=== PATIENT | male | born 1995 | race Caucasian/White ===

== ENCOUNTER → 2019-02-21 | Outpatient (CLI) | payer OTHER ==
--- NOTE | 2019-02-21 10:20 | REP ---
TRIPLE PHASE BONE SCAN OF THE ANKLES: Following the intravenous administration of 21.9 millicuries technetium 99m MDP, patient's ankles are imaged in the flow phase, immediate blood pool and 2.5-hour delayed phases of imaging. There is increased blood flow and blood pooling in the distal left fibular region. Delayed images show focal intense increased uptake in the distal left fibula, consistent with a relatively acute stress fracture. Delayed images also show increased linear uptake along the tibial shafts compatible with stress periostitis. There is also a focal area of anterior cortical uptake in the distal right tibia suggesting a focal anterior cortical stress fracture. Electronically Signed by Blake Olivas MD 02/21/2019 06:32 P
== END ==
LOC: M RAD 07:10
PROVIDERS: ATTEND Physician Assistant Surgical
DX: M84.364A Stress fracture, left fibula, initial encounter for fracture (principal)

== ENCOUNTER 2021-04-12 08:55 | Emergency (ER) | payer OTHER ==
[~2021-04-12] VITALS: Ht 195.6 cm; Wt 87.4 kg
--- OUTSIDE RECORDS SUMMARY | 2021-04-12 09:04 | CCD | Summary of Care ---
Author Author [facility] Organization [facility] Address Unknown Phone Unavailable Care Team Providers Care Fuse Maker Name Role Phone Pcp, No PCP Unavailable Reason for Visit * Reason Comments Finger Injury ring finger of left hand Encounter Details Care Team Description Date Type Department Basilia Bird, DO [address] [place] [address] Injury of nail bed of finger of left ashby d, subsequent encounter (Primary Dx); Open fracture of tuft of distal phalanx of finger 02/03/2021 Emergency PEDIATRIC EMERGENCY DEPARTMENT [address] [place] [address] Allergies Comments Active Allergy Reactions Severity Noted Date Sulfa Antibiotics 02/03/2021 documented as of this encounter (statuses as of 02/03/2021) Medications End Date Status Medication Sig Dispensed Refills Start Date 02/10/2021 Active Cephalexin 500 MG Oral Take 1 21 capsule 0 Capsule (KEFLEX) capsule by 1 mouth Three times daily for 7 days documented as of this encounter (statuses as of 02/03/2021) Active Problems Not on filedocumented as of this encounter (statuses as of 02/03/2021) Immunizations Name Administration Dates Next Due Tdap 02/03/2021 documented as of this encounter Social History Date Tobacco Use Types Packs/Day Years Used Never Smoker Sex Assigned at Date Recorded Not on file Travel End Travel History Travel Start 02/02/2021 [place] 01/15/2021 Date Recorded COVID-19 Exposure Response 02/03/2021 12:06 PM EDT In the last month, have you been in contact with No / Unsure someone who was confirmed or suspected to have Coronavirus / COVID-19? documented as of this encounter Last Filed Vital Signs Reading Time Taken Comments Vital Sign 126/73 02/03/2021 3:20 PM EDT Blood Pressure 60 02/03/2021 3:20 PM EDT Pulse 36.7 C (98 F) 02/03/2021 3:20 PM EDT Temperature 16 02/03/2021 3:20 PM EDT Respiratory Rate 100% 02/03/2021 3:20 PM EDT Oxygen Saturation - - Inhaled Oxygen Concentration 93 kg (205 lb) 02/03/2021 12:24 PM EDT Weight 195.6 cm (6' 5") 02/03/2021 12:24 PM EDT Height 24.31 02/03/2021 12:24 PM EDT Body Mass Index documented in this encounter Discharge Instructions * Instructions* Lauren Fernando MD - 02/03/2021 Your finger appears to be healing well, with no signs of infection. You do have and open fracture, so is important to take antibiotics daily for the next week to help prevent infection. It is also important to follow-up with the orthopedic doctors to ensure everything is healing well. Call Dr[facility] to schedule a follow-up appointment next week. If you develop increased pain, swelling, redness, pus draining from the area, fe vers or other worsening symptoms, return to the emergency department for immedia te reevaluation documented in this encounter ED Notes * Elen Tom RN - 02/03/2021 3:20 PM EDT Patient is re-assessed by MD and deemed ready for discharge. Patient is alert, a ctive, and in no acute distress. Discharge instructions, follow-up care, prescri ptions, and pharmacy is reviewed with patient. Patient verbalized understanding and denies questions at this time. Patient agrees with plan to discharge. Serena dickson is discharged to home in stable condition. * Elen Tom RN - 02/03/2021 12:35 PM EDT Dressing removed per MD. Saline used to help remove dressing. 2x2 on top of hand stuck to dried blood on top of finger. Finger placed in basin with saline to so ak awaiting MD evaluation. MD's aware. * Elen Tom RN - 02/03/2021 12:30 PM EDT Assumed care of patient at this time. Introduced self to patient. Assessment is as documented. Patient has dressing to left ring finger - no bleeding or drainag e noted to dressing. Will leave dressing on until MD's ready for evaluation. Saf ety maintained. Call lyons within reach. Will continue to monitor. * Catrachita Bloom RN - 02/03/2021 12:20 PM EDT Patient sustained an open fracture to ring finger approx 1 week ago. Patient has finger wrapped at this time. documented in this encounter Plan of Treatment Health Maintenance Due Date Last Done Comments MMR Vaccines (1 of - 09/02/1996 Standard series) Varicella Vaccines (1 of 09/02/1996 2 - 2-dose childhood series) HIV Screening 09/02/2008 DTaP,Tdap,and Td Vaccines 03/03/2021 02/03/2021 (2 - Td or Tdap) Influenza Vaccine 03/04/2021 Pneumococcal Vaccine: 65+ 09/02/2060 Years (1 of 1 - PPSV23) HIB Vaccines Aged Out No longer eligible based on patient's age to complete this topic Hepatitis A Vaccines Aged Out No longer eligibl e based on patient's age to complete this topic Hepatitis B Vaccines Aged Out No longer eligibl e based on patient's age to complete this topic IPV Vaccines Aged Out No longer eligible based on patient's age to complete this topic Pneumococcal Vaccine: Aged Out No longer eligib le based on patient's age to Pediatrics (0 to 5 Years) complete this topic and At-Risk Patients (6 to 64 Years) documented as of this encounter Procedures Comments Procedure Name Priority Date/Time Associated Diag nosis XR HAND 3 OR MORE VIEWS STAT 02/03/2021 70679 1:31 PM EDT documented in this encounter Results * XR Hand 3 or More Views Left (02/03/2021 1:31 PM EDT) Specimen Impressions Performed At IMPRESSION: Acute comminuted fracture of the distal t uft of the fourth finger [facility] generating mild bony fragmentation and soft tissue swelling. No radiopaque foreign body. Narrative Performed At [facility] Left hand radiograph INDICATION: Concern for fracture of the fourth digit COMPARISON: None available. FINDINGS: Frontal, bilateral oblique an d lateral views submitted for review. There is acute comminuted fracture of t he distal tuft of the fourth finger (fourth distal phalanx) generating a mi ld degree of bony fragmentation and soft tissue swelling. Remaining osseous stru ctures are intact. Joint spaces are preserved. No radiopaque foreign body i dentified. Procedure Note Interface, Received Via [employer] - 02/03/2021 2:01 PM EDT Left hand radiograph INDICATION: Concern for fracture of the fourth digit COMPARISON: None available. FINDINGS: Frontal, bilateral oblique and lateral views submitted for review. There is acute comminuted fracture of the distal tuft of the fourth finger (fourth distal phalanx) generating a mild degree of bony fragmentation and soft tissue swelling. Remaining osseous structures are intact. Joint spaces are preserved. No radiopaque foreign body identified. IMPRESSION: Acute comminuted fracture of the distal tuft of the fourth finger generating mild bony fragmentation and soft tissue swelling. No radiopaque foreign body. Performing Organization Address City/State/ZIP Code P pritesh Number [facility] [address] [place] [address] documented in this encounter Visit Diagnoses Diagnosis Injury of nail bed of finger of left pena nd, subsequent encounter - Primary Open fracture of tuft of distal phalanx of finger Open fracture of distal phalanx or phal anges of hand documented in this encounter Administered Medications Action Date Dose Rate Site Medication Order MAR Action 02/03/2021 1:32 PM EDT 500 mg cephALEXin (KEFLEX) capsule 500 mg Given 500 mg, Oral, Once, On Janet 02/03/21 at 1315, For 1 dose documented in this encounter Active and Recently Administered Medications Times are shown in EDT. 02/02/2021 02/03/2021 Medication Order 02/01/2021 1332 (Given - Provider: Elen barrett, MICHELLE) cephALEXin (KEFLEX) capsule 500 mg (COMPLETED) 500 mg, Oral, Once, On Janet 02/03/21 at 1315, For 1 dose documented in this encounter
--- OUTSIDE RECORDS SUMMARY | 2021-04-12 09:04 | CCD ---
Author [facility] Organization [facility] Address Unknown Phone Unavailable Care Team Providers Care Act Tutor Name Role Phone STACK, M ESPERANZA DO Unavailable Unavailable STACK, M ESPERANZA DO Unavailable Unavailable STACK, M ESPERANZA DO Unavailable Unavailable STACK, M ESPERANZA DO Unavailable Unavailable STACK, M ESPERANZA DO Unavailable Unavailable STACK, M ESPERANZA DO Unavailable Unavailable STACK, M ESPERANZA DO Unavailable Unavailable STACK, M ESPERANZA DO Unavailable Unavailable STACK, M ESPERANZA DO Unavailable Unavailable Re-disclosure Warning The records that you are about to access may contain information from federally-assisted alcohol or drug abuse programs. If such information is present, then the following federally mandated warning applies: This information has been disclosed to you from records protected by federal confidentiality rules (42 CFR part 2). The federal rules prohibit you from making any further disclosure of this information unless further disclosure is expressly permitted by the written consent of the person to whom it pertains or as otherwise permitted by 42 CFR part 2. A general authorization for the release of medical or other information is NOT sufficient for this purpose. The Federal rules restrict any use of the information to criminally investigate or prosecute any alcohol or drug abuse patient.The records that you are about to access may contain highly sensitive health information, the redisclosure of which is protected by Article 27-F of the [facility] Public Health law. If you continue you may have access to information: Regarding HIV / AIDS; Provided by facilities licensed or operated by the [facility] Office of Mental Health; or Provided by the [facility] Office for People With Developmental Disabilities. If such information is present, then the following [facility] mandated warning applies: This information has been disclosed to you from confidential records which are protected by state law. State law prohibits you from making any further disclosure of this information without the specific written consent of the person to whom it pertains, or as otherwise permitted by law. Any unauthorized further disclosure in violation of state law may result in a fine or penitentiary sentence or both. A general authorization for the release of medical or other information is NOT sufficient authorization for further disc losure. Allergies and Adverse Reactions Type Description Substance Reaction Status Data Source(s ) Propensity to adverse reactions SULFA ANTIBIOTICS SULFA ANTIBIOTICS [facility] Encounters Encounter Providers Location Date Indications Data Source(s ) Emergency Attender: ESPERANZA RODRIGUEZ 07A-EDP 2020 12:06:00 PM EDT - 02/03/2021 03:21:00 PM EDT broken finger [facility] broken finger Patient discharged. Immunizations Vaccine Date Status Description Data Source(s) Tdap 02/03/2021 12:00:00 AM EDT completed <td ID="[id number]">Tdap</td><td>02/03/2021</td><td></td> [facility] COVID-19 VACCINE Pfizer 08/25/2020 12:00:00 AM EDT completed [employer] Vaccine Series Complete: NOThis Data was Submitted to [facility] Via [employer]. Medications Medication Brand Name Start Date Product Form Dose Route Admi nistrative Instructions Pharmacy Instructions Status Indications Reaction Description Data Source(s) Cephalexin 500 MG Oral Capsule cephALEXin (KEFLEX) cap kiko 500 mg cephALEXin (KEFLEX) capsule 500 mg 02/03/2021 01:15:00 PM EDT 500 mg Oral completed 500 mg, Oral, Once, On Janet 02/03/21 at 131 5, For 1 dose [facility] Medication administered onsite Cephalexin 500 MG Oral Capsule Cephalexin 500 MG Oral Capsule (KEFLEX) Cephalexin 500 MG Oral Capsule (KEFLEX) 02/03/2021 12:00:00 AM EDT 500 mg Oral active Take 1 capsule by [facility] Three times daily for 7 days [facility] Insurance Providers Payer name Policy type / Coverage type Policy ID Covered democrat ID Covered democrat's relationship to mascorro Policy Mascorro Plan Information [facility] ACTIVE DUTY [id number] SP [id number] U [id number] Self [id number] ACTIVE DUTY [id number] SP [id number] Problems, Conditions, and Diagnoses Code Display Name Description Problem Type Effective Dates Data Source(s) broken finger broken finger Diagnosis 02/03/2021 12:16:00 PM EDT [facility] Surgeries/Procedures Procedure Description Date Indications Data Source(s) RADEX HAND MINIMUM 3 VIEWS <td>XR HAND 3 OR MORE VIEWS [id number]</td><td>STAT</td><td>02/03/2021 1:31 PM EDT</td><td></td><td> </td> 02/03/2021 01:31:00 PM EDT [facility] Results ID Date Data Source [id number] 02/04/2021 04:46:25 PM EDT [facility] Name Value Range Interpretation Code Description Data Kristina rce(s) Supporting Document(s) ED Provider Note [facility] [id number] lbm [file] DJ9PYXY+Alyx+Ic4LEXCgLOJhXWKrUlVcXSUZSbDcK4QcT5XYn6WfF3ZxNP03fIwqtnQyHBesJX8SDC5a FNNdAXBJMB6AwFDemD0cdoOiGoKmARDKYsVsU49nyR LvXPJaJXW9ZVGjMt8ZTPBjN3LupcJpmOestiQnORIpDBMVHU4LLCndpaTvlGFunKikFN50nFrbOC2RPb 2LSuZyDF7mkq9ZyUTlYc7SINM2VH2ZHSZfVIUdENNhXJN7AJYaMzVvKIjwCSKuYDQcXNM3CUFdKSCtOW 9IGnXfPUWrEdooYpEkSTXiWMKfcm0LKFMpCLQ7SIjb WAYxRMNjEESxMJzkYOBxRUOyJWO4ORCaDKSvXY9WFdVcOGPnKEQpEkkvHWXoITLdmh6ERSIyQOBrRiS6 NWGgOGMmCRCrAJdiLXGgEQP7XCC8IDJqNFXuLS2SAcRpVDDrCWXvGMQuUQXiKLRwdv4CEHFoMZOwGXXc JWKtLTVpWLOnMRuvGKEqFDC0AiU2HAMnMTDeIU0PSd TlAGZwHRGqJBQkJKIsJTWkjt1RVBVqUUXoOnW9VIMuXQJoATFjVNugYVQmZWU6JfW2ANOgHMAaUD3TDq FvSMUcNVD0AFEkJTIkJMDgym9DSUVvTOOgQpd0BIJbURYdKKVlKHtmJPFeLCF5PTv7MBLpPJNePY5CXi AiWHFiPeNlGGaxUVIuDAGfam3YQKVpROFqNVNfTTBu DJPpSZRhMIooVFTsAZCdAnh8VBXpFWPpOW7JLvYrQLDeVcS0SvRmDZQjENLear0GOOTnYRDwNjg8FTOy SRSaISSlZBkkDHIqDBJbCcN1FUEeVXLlDR5MKzWpJCZmMtR1NWWvGGMkBYQdnw1PLCReBYXtYLNuLICk AKPkQMJaORsrJHEwNDO1LLN4JQKcMBQuYZ6OMpFaEX ZwFeAfRwLzWNTaYBThez1WBKGuQDOkWQZ1REYqMOGtVUHxVYrxLOLqCVA6RBA6LJFdQZOqNB4FFsXwLT YxBgirJBzgRVDdJBMiwv5UXWUrNTBpHrL6MdNxMBJdTDNeIUtfCTSeRHJ1AKz8QVHmDKAjIL2DRcTuDR KkUlf6ARMbUNLfWPEelo3DIHJyRVOkTXB4YYKqLZHa AWAqJMksMJHgAFH0IKjfRJGdWZQpAW9NMtInNROkTzlyDDSoPJKyGWYpzr2RZFRoTXCeIKF9SQHcQFLu KWTcDHsmKNAuSENaMAMqAPEcGQBuEF0BJyZpVMSmZQPsJnCqNWGuSVImrl8DDFLvFEP5DYKhByYfLRFs UKSoMBxaYNQmENIbUog1MZCnBSMmMG8BGcUbLEZrRS T0JwwlJPOuGAImgn6WRGOjMPX1JOm6TmDgECOxRBWdJExlQTXyRAVhFQX5UILsILXiDU6RMoFfFRMcZM WhHONaACBxFODqtz9AsDJpwNkmfb9WHOcAHb1MyFekZFG2OIozIx5nwZB2MMHtPLZBCo8XqfVkTIBpDM DGTYbtYNCnWFP9UmC5RNFeRBx9WYNpSkH6MBH3OAEe PgB5CUytBcVeZxP7GHunQsO3NJUjLYRtRoN5DrIbMbQdM7UdDTIoWFRfTqJ+AQ3yBXu+Xr8Sg7LaczF9 ieMfOOj9GwIwWB3EFMWNB7QKIp== ID Date Data Source [id number] 02/03/2021 02:01:12 PM EDT [facility] XR HAND 3 OR MORE VIEWS [id number] RESUL TInterpreted by:Quentin Miranda MDLe hand radiographINDICATION: Concern for fracture of the fourth digitCOMPARISON: None available.FINDINGS: Frontal, bilateral oblique and lateral views submitted for review. There is acute comminuted fracture of the distal tuft of the fourth finger (fourth distal phalanx) generating a mild degree of bony fragmentation and soft tissue swelling. Remaining osseous structures are intact. Joint spaces are preserved. No radiopaque foreign body identified.IMPRESSION: Acute comminuted fracture of the distal tuft of the fourth finger generating mild bony fragmentation and soft tissue swelling. No radiopaque foreign body.This document has been electronically signed by Quentin Miranda MD on 02/03/2021 1:59 PM Name Value Range Interpretation Code Description Data Kristina rce(s) Supporting Document(s) Procedure Social History Code Duration Value Status Description Data Source(s ) Smoking 02/03/2021 12:00:00 AM EDT Never smoker completed Never s [facility] Patient Treatment Plan of Care Planned Activity Planned Date Details Description Data Source (s) Cephalexin 500 MG Oral Capsule 02/03/2021 12:00:00 AM EDT [facility]
--- OUTSIDE RECORDS SUMMARY | 2021-04-12 10:02 | CCD ---
Author Author [facility] Organization [facility] Address Unknown Phone Unavailable Care Team Providers Care Planning Consultant Name Role Phone STACK, M ESPERANZA DO [...] is protected by Article 27-F of the [facility] Public Health law. If you continue you may have access to information: Regarding HIV / AIDS; Provided by facilities licensed or operated by the [facility] Office of Mental Health; or Provided by the [facility] Office for People With Developmental Disabilities. If such information is present, then the following [facility] mandated warning applies: This information has been [...] law may result in a fine or usp sentence or both. A general authorization for the release of medical or other information is NOT sufficient authorization for further disc losure. Allergies and Adverse Reactions Type Description Substance Reaction Status Data Source(s ) Propensity to adverse reactions SULFA ANTIBIOTICS SULFA ANTIBIOTICS [facility] Encounters Encounter Providers Location Date Indications Data Source(s ) Emergency Attender: ESPERANZA RODRIGUEZ 07A-EDP 2020 12:06:00 PM EDT - 02/03/2021 03:21:00 PM EDT broken finger [facility] broken finger Patient discharged. Immunizations Vaccine Date Status Description Data Source(s) Tdap 02/03/2021 12:00:00 AM EDT completed <td ID="[id number]">Tdap</td><td>02/03/2021</td><td></td> [facility] COVID-19 VACCINE Pfizer 08/25/2020 12:00:00 AM EDT completed [employer] Vaccine Series Complete: NOThis Data was Submitted to [facility] Via [employer]. Medications Medication Brand Name Start Date Product Form Dose Route Admi nistrative Instructions Pharmacy Instructions Status Indications Reaction Description Data Source(s) Cephalexin 500 MG Oral Capsule cephALEXin (KEFLEX) cap kiko 500 mg cephALEXin (KEFLEX) capsule 500 mg 02/03/2021 01:15:00 PM EDT 500 mg Oral completed 500 mg, Oral, Once, On Janet 02/03/21 at 131 5, For 1 dose [facility] Medication administered onsite Cephalexin 500 MG Oral Capsule Cephalexin 500 MG Oral Capsule (KEFLEX) Cephalexin 500 MG Oral Capsule (KEFLEX) 02/03/2021 12:00:00 AM EDT 500 mg Oral active Take 1 capsule by [facility] Three times daily for 7 days [facility] Insurance Providers Payer name Policy type / Coverage type Policy ID Covered green party ID Covered green party's relationship to mascorro Policy Mascorro Plan Information [facility] ACTIVE DUTY [id number] SP [id number] U [id number] Self [id number] ACTIVE DUTY [id number] SP [id number] Problems, Conditions, and Diagnoses Code Display Name Description Problem Type Effective Dates Data Source(s) broken finger broken finger Diagnosis 02/03/2021 12:16:00 PM EDT [facility] Surgeries/Procedures Procedure Description Date Indications Data Source(s) RADEX HAND MINIMUM 3 VIEWS <td>XR HAND 3 OR MORE VIEWS [id number]</td><td>STAT</td><td>02/03/2021 1:31 PM EDT</td><td></td><td> </td> 02/03/2021 01:31:00 PM EDT [facility] Results ID Date Data Source [id number] 02/04/2021 04:46:25 PM EDT [facility] Name Value Range Interpretation Code Description Data Kristina rce(s) Supporting Document(s) ED Provider Note [facility] [id number] lbm [file] RQ2ATTB+Alyx+Ix4NRGPzEFEzUYRzGjIiNTRXXnMuV0LbN3RNg9HsT5FpUE00zWqqzaJfNKudAE6AQK2k OZJlYUXPRF9SlAXepF8gfpGoLcIkGAENErPnS54ggO QfOISoYCH9CLNgGc3FVQNzY6RankQasNxnjkGpUJMyYIVCLG0ALEhqjvVkmWQzeYyvAD64dYgjMF2KRb 4TGtNvMX6nlt0EtEXzIq7ZJFB6MW4FCQFzPKSwKOGwHEK0EKXiGuFmNNecNLFzTPNwFXA9MELxVFFaGQ 6VNbBcSHBvMziaDlIbYWCzENTkxq1MOUJtOXC6UBbj QIXmWZGoYMGrEEbyDRRsTEGePGY8FUXzYAKcXS6ODjLsNZMmVYZgZhnmNIKmXDBdmw9CCLRqEJYbCwI1 SQLtRRShWTSqEXizDBVtOFN5LER6UDEpVEWrDQ2VJuJwTUKkLOStHMIfUBXeMRLxsw2DHBQfHGZhCSVv QNPxYGYnJMJuYHpcAMJaQDD6DpB8AOElKYEdHQ7DYn OgECZmEMVqKVDsUVAgXEIfvw6AKUTxKACePuT9IAEsHXEnIZKdMOxeSLRaFGC2ZmV3LJLpIYIoKU1OIj OqXTCbDZF8DFEfBGXuCWFiuv4NZXKvWBEnNig1ZMNtAGMhJIOcRLgqQITeCOB7FSw0HYLmTTJsPU0ELj KaZBXzJcWpTUopDEQoYFBuyz0SQICuDZBmYSRnFAIo MAYcGKAaJVeyEMTeWCSaMjd3OQKeRBXmRY6NRxYmVMBpAzT3EoAhDEBjSYYsqw9DMNCrMUCmXso5BGSb QDPsNINtKNxwUHLpIQAjTmR5XKQtVQPnXP1LFySfHTUkPsU5JTHeVOQyXBOpfp6NVRWgJUTeDWGbXTBs DYWuQFHnMAzrMPSuQRY2XMD0INRxRAMwOC2AImZuTY LzAtPgAlQmGAQlPAXaqa4OBUKuTQQrJHP4IUHrGECcPMNbLYybTRIgDTO1VPK1OLDbWLWnVP7NOhQtYY OqJcbmRRmyCNTeHUIhwg1WJKBhIQFdTkR1XvTqZEMcCXCmJMabQAFzHXZ3ILx3OZOeOQCbWC2ZLsKjTW MwVuw0UGWcUWJbXCUocy1CKXAvKQRuGPL4AIFfPSAs FGLzZSnxNCYiQWM4XWfyHSTkOREjNT0NLnGcZHJlDztkDWOlWLHhRVNzde4IDFKbRLTlNEF0RBSzHLOt IOInQAfgUOIvYYNtPWJjVDLaEQWvIF8HScDaCQBcHNNxZqDeSNIsDRNruo8CWJIjTXT8LMRrMfLdMNZk QTBjIBbnFTUqKAAmQae4MWVmVPRuBY0YBmPiUKWpTF I9TzvrJGNdTMPtmi5EGJLhZYT6GTv0ZqGgSKCyMAAcURngSRDiQNWyALD1XIXkNYGaVO8QSaSjARHxPG NhOPThQOPxGHRdjr0GiAAasPcpop2PQZxKRs4XkXcaOVN6JVncHe8ruDD1FQEtJDONNf1UioAzROYoZB FPCVjxMRKdZDQ5ByJ3AWLcESr5IORwCnJ2ZGT0WWAh FrZ3MVvpYgToGtC9INpqYyY3QFZlNJFeKaD4RuFzWgCxT4QvMGAjLKItUtE+KH6cEFh+Nx3Ii8UjelB5 qnLpMKg9TwBvLZ9UMHFGM1ZODb== ID Date Data Source [id number] 02/03/2021 02:01:12 PM EDT [facility] XR HAND 3 OR MORE VIEWS [id number] RESUL TInterpreted by:Quentin Miranda MDLe hand radiographINDICATION: [...] AM EDT Never smoker completed Never s [facility] Patient Treatment Plan of Care Planned Activity Planned Date Details Description Data Source (s) Cephalexin 500 MG Oral Capsule 02/03/2021 12:00:00 AM EDT [facility]
[2021-04-12] MEDS ORDERED: PROPARACAINE 0.5% OPHTH SOL 15ML OS ONE (11:25)
[2021-04-12] MEDS ORDERED: FLUORESCEIN OPHTH 1 MG STRIP OS ONE (11:25)
[2021-04-12] MEDS ORDERED: ERYT5OIN25 OS (11:52)
[2021-04-12 12:06] VITALS: BP 112/69
== END 2021-04-12 12:08 | disposition home or self-care (01) ==
LOC: M ED 08:55
DX: S05.02XA Injury of conjunctiva and corneal abrasion without foreign body, left eye, initial encounter (principal); W22.8XXA Striking against or struck by other objects, initial encounter; Y92.828 Other wilderness area as the place of occurrence of the external cause; Y93.01 Activity, walking, marching and hiking; Y99.1 Military activity